=== PATIENT | male | born 1955 | race Caucasian/White ===

== ENCOUNTER 2016-08-22 07:55 | Day surgery (SDC) | payer OTHER ==
[~2016-08-22] VITALS: Ht 180.3 cm; Wt 118.0 kg
[~2016-08-22 07:55] MED LIST: AMLO10TA79 PO; BUSP15 PO; DIAZ5TAB3 PO; FLAX100038 PO; SYN.15T2 PO; Sodium Chloride LOK Flush 10 mL Syringe IV PRN; UBID10CA4 PO; ZYL300 PO; fentaNYL-PF 50 mCg/mL 2 mL Inj IVPUSH PRN
[2016-08-22 08:35] VITALS: BP 136/85; PULSE 53; RESP 14; O2SAT 98
[2016-08-22] MEDS: 0.9% Sodium Chloride 1,000 ML IV SCH ×2 (09:24→09:56)
[2016-08-22 10:11] VITALS: BP 129/82; PULSE 52; RESP 16; O2SAT 96
[2016-08-22 10:20] VITALS: BP 126/80; PULSE 55; RESP 16; O2SAT 98
[2016-08-22 10:27] VITALS: BP 136/90; PULSE 52; RESP 16; O2SAT 95
--- NOTE | 2016-08-22 16:39 | ENDO ---
[address] [address] ENDOSCOPY PROCEDURE PATIENT: LOCO AVILA : 1955 MR#: [id number] ADMIT: 08/22/2016 JOB ID: [id number] PROCEDURE: Colonoscopy. INDICATION: Patient with a personal history of colon polyps. Patient's ASA classification is II. Mallampati score is II. SEDATION: Versed at 5 mg, Fentanyl 125 mcg. INSTRUMENT USED: [id number]. PREPARATION QUALITY: Was fair. PROCEDURE DETAILS: After informed consent was obtained, the patient was brought into the GI suite, where he was placed on oxygen via nasal cannula and monitored with continuous pulse oximeter, telemetry, and blood pressure monitoring. A time-out was performed. Then, he was placed in a left lateral decubitus position and medications were administered for sedation. A digital rectal exam was performed which was unremarkable. The colonoscope was then inserted into the rectum and advanced under direct visualization to the cecum, which was identified by the presence of the ileocecal valve and appendiceal orifice. Once the cecum was reached, the colonoscope was withdrawn back into the rectum and mucosa and lumen were examined. In the rectum, retroflexion was performed. Following retroflexion, remaining air in the rectum was suctioned, and procedure was completed. FINDINGS: 1. In the cecum, there was an approximately 4 mm flat polyp that was removed using a cold snare. 2. In the descending colon, there was an approximately 2-2.5 cm pedunculated polyp that was removed with a hot snare. The resultant mucosal defect was approximated with placement of two hemoclips. IMPRESSION: 1. Cecal polyp. 2. Descending colon polyp. RECOMMENDATIONS: 1. Repeat colonoscopy in three years. 2. Avoid NSAIDs and anticoagulants for 72 hours. 3. Follow up in GI clinic as needed. COMPLICATIONS: None. ESTIMATED BLOOD LOSS: Less than 5 mL.
--- NOTE | 2016-08-25 14:52 | PATH ---
SURGICAL PATHOLOGY Attending Physician:Ryan Vides CASE STATUS: Signed Out PATIENT NAME: LOCO AVILA PID: [id number] : 1955 DATE COLLECTED:08/22/2016 15:59 SPECIMEN: 1: Colon, Biopsy 2: Colon, Biopsy CLINICAL HISTORY: 1. CECAL POLYP 2. 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 ICD10 CODE D12.4 GROSS DESCRIPTION: The specimen is received in two formalin filled containers labeled with the patient's name. 1). The specimen is sublabeled "cecal polyp" and consists of are 3 portions of tissue which aggregate to 0.3 x 0.3 x 0.2 CM. The specimen is entirely submitted in cassette 1A. 2). The specimen is sublabeled "descending polyp" and consists of a 0.7-0.7 x 1.5 CM portion of tissue. The specimen is bisected and entirely submitted in cassette 2A. 08/22/2016 [facility] MICRO DESCRIPTION: See diagnosis. ICD-9 CODES: CPT CODES: 1: 67236 2: 27846 Electronically Signed Out Antonio Roberts MD [facility] Pathology [facility] [address], [place] [address] Technical component performed at [facility], [address] [place] [address] Ave[address], [place], [address]
== END 2016-08-22 23:59 | disposition home or self-care (01) ==
LOC: END 07:55
PROVIDERS: ATTEND Internal Medicine Gastroenterology
DX: Z12.11 Encounter for screening for malignant neoplasm of colon (principal); D12.0 Benign neoplasm of cecum; D12.4 Benign neoplasm of descending colon; F41.9 Anxiety disorder, unspecified; I10 Essential (primary) hypertension; Z87.891 Personal history of nicotine dependence; M10.9 Gout, unspecified; Z86.010 Personal history of colon polyps
CPT/HCPCS: 45385; 99153; G0500; J7030